=== PATIENT | female | born 1945 | race Caucasian/White ===

== ENCOUNTER 2017-11-20 01:04 | Observation (INO) | payer MEDICARE, OTHER ==
[~2017-11-20] VITALS: Ht 167.6 cm; Wt 80.0 kg
[2017-11-20] VITALS (11 sets, daily range): BP systolic 94–193; BP diastolic 50–99; PULSE 57–118; RESP 16–17; TEMP 97.9–98.2; O2SAT 94–98
[2017-11-20] MEDS ORDERED: LIOT5TAB3 (01:39)
[2017-11-20] MEDS ORDERED: RANI150T PO (01:39)
[2017-11-20] MEDS ORDERED: PROGESTERONE TOPICAL (01:39)
[2017-11-20] MEDS ORDERED: DILT120T PO ×2 (01:39→14:47)
[2017-11-20] MEDS ORDERED: SODI1SOL12 PO (01:39)
[2017-11-20] MEDS ORDERED: METO1TAB9 PO ×2 (01:39→14:47)
[2017-11-20] MEDS ORDERED: LEVO75TA3 PO (01:39)
[2017-11-20] MEDS ORDERED: CLOB0.055 TOPICAL (01:39)
[2017-11-20] MEDS ORDERED: VIVE0.05 T-DERMAL (01:39)
[2017-11-20] MEDS ORDERED: fish oil PO (01:39)
[2017-11-20] MEDS ORDERED: LORA0.5T PO ×2 (01:39→14:47)
[2017-11-20] MEDS ORDERED: ESTRIOL PR (01:39)
[2017-11-20] MEDS ORDERED: FLUT1SPR5 EACH NARE (01:39)
[2017-11-20] MEDS ORDERED: TESTOSTERONE PR (01:39)
[2017-11-20] MEDS ORDERED: ASPIRIN 81 MG CHEW TAB CHEW ONE (01:45)
[2017-11-20] MEDS ORDERED: NITROGLYCERIN 2% OINT 1 GM PACKET TOPICAL ONE (01:45)
[2017-11-20 01:53] LABS: AUTOMATED NEUTROPHIL # 6.4 TH/MM3 (1.8-7.7); BASOPHIL # 0.1 TH/MM3 (0-0.2); BASOPHIL % 1.4 % (0.0-2.0); EOSINOPHIL # 0.6 TH/MM3 (0-0.4); EOSINOPHIL % 5.9 % (0.0-4.0); HEMATOCRIT 44.2 % (35.0-46.0); HEMOGLOBIN 15.6 GM/DL (11.6-15.3); LYMPH % 17.8 % (9.0-44.0); LYMPHOCYTE # 1.7 TH/MM3 (1.0-4.8); MEAN CELL VOLUME 95.1 FL (80.0-100.0); MEAN CORPUSCULAR HEMOGLOBIN 33.5 PG (27.0-34.0); MEAN CORPUSCULAR HGB CONC 35.2 % (32.0-36.0); MEAN PLATELET VOLUME 7.5 FL (7.0-11.0); MONO % 8.2 % (0.0-8.0); MONOCYTE # 0.8 TH/MM3 (0-0.9); NEUT % 66.7 % (16.0-70.0); PLATELET COUNT 294 TH/MM3 (150-450); RED BLOOD COUNT 4.65 MIL/MM3 (4.00-5.30); RED CELL DISTRIBUTION WIDTH 13.2 % (11.6-17.2); WHITE BLOOD COUNT 9.6 TH/MM3 (4.0-11.0)
[2017-11-20] MEDS ORDERED: METOPROLOL TARTRATE 5 MG/5 ML VIAL IV ONE (02:00)
--- NOTE | 2017-11-20 02:03 | RADRPT ---
EXAM DATE/TIME: 11/20/2017 01:50 [place] COMPARISON: No previous studies available for comparison. INDICATIONS : Chest pain. Palpitations. MEDICAL HISTORY : None. SURGICAL HISTORY : None. ENCOUNTER: Initial ACUITY: 1 day PAIN SCORE: 110 LOCATION: Bilateral chest FINDINGS: Cardiomegaly and aortic calcification. No consolidation or effusion. There is linear scarring at the left lung base. Hyperinflation and attenuated upper lung markings noted. CONCLUSION: Hyperinflation and attenuated lung markings. Left basilar linear scarring. Atherosclerosis. Yoandy Wiggins MD on November 20, 2017 at 2:01 Board Certified Radiologist. This report was verified electronically.
[2017-11-20] MEDS ORDERED: DILTIAZEM HCL 25 MG/5 ML VIAL IV ONE (02:30)
[2017-11-20 02:37] LABS: BICARBONATE 28.6 MEQ/L (21.0-32.0); BLOOD UREA NITROGEN 11 MG/DL (7-18); CALCIUM 8.9 MG/DL (8.5-10.1); CHLORIDE 99 MEQ/L (98-107); CREATININE 0.89 MG/DL (0.50-1.00); GLOMERULAR FILTRATION RATE 63 ML/MIN (>89); GLUCOSE,RANDOM 127 MG/DL (74-106); SODIUM (NA) 134 MEQ/L (136-145); TROPONIN I LESS THAN 0.02 NG/ML (0.02-0.05)
[2017-11-20] MEDS ORDERED: SODIUM CHLORIDE 0.9% FLUSH 10 ML FLUSH IV FLUSH PRN (04:00)
[2017-11-20] MEDS ORDERED: NALOXONE HCL 0.4 MG/ML AMP IV PUSH PRN (04:00)
--- NOTE | 2017-11-20 04:21 | PD ---
HPI Chief Complaint: Chest Pain Time Seen by Provider: 01:43 Travel History International Travel<30 days: No Contact w/Intl Traveler<30days: No Traveled to known affect area: No History of Present Illness HPI pt is a 72 yr old female with HTN on metoprolol and diltiazem and she started having palpitation feeling in her chest at 6 pm 6 hrs prior to arrival . pt continues with the same feelin g in ER , Pt arrives to ER with HTN and tachycardia 114-116 irregular, pt no CP no SOB no Diarrhea no stimulants . pt has been walking very little due to plantar fasciitis and today she did more walking than more . pt is ER EKG is afib at rate 114 PFSH Past Medical History Diminished Hearing: No GERD: Yes Hypertension: Yes Thyroid Disease: Yes (hypo) Tetanus Vaccination: Unknown Influenza Vaccination: Yes ?: Not Past Surgical History Appendectomy: Yes Eye Surgery: Yes (catract b/l eyes) Hysterectomy: Yes Social History Alcohol Use: Yes (glass of wine nightly) Tobacco Use: No Substance Use: No Allergies-Medications (Allergen,Severity, Reaction): Coded Allergies: amoxicillin (Verified Allergy, Severe, 11/20/17) abd cramps chlorhexidine (Verified Allergy, Severe, 11/20/17) rash clavulanic acid (Verified Allergy, Severe, 11/20/17) abd cramps pantoprazole (Verified Allergy, Severe, 11/20/17) nausea Reported Meds & Prescriptions Reported Meds & Active Scripts Active Aspirin EC (Aspirin) 325 Mg Tabdr 325 Mg PO DAILY Lorazepam 0.5 Mg Tab 0.5 Mg PO Q8H PRN Diltiazem (Diltiazem HCl) 120 Mg Tab 120 Mg PO DAILY Metoprolol Succinate ER 24 HR (Metoprolol Succinate) 50 Mg Tab 50 Mg PO DAILY Reported Liothyronine (Liothyronine Sodium) 5 Mcg Tab 5 Mcg BID [estriol/testosterone] 6 Mg VA 2XWEEK [progesterone creame] 0.2 Ml TOPICAL BID [fish oil] 1,100 Mg PO DAILY Flonase Nasal [place] (Fluticasone Nasal [place]) 50 Mcg/Act [place] 50 Mcg EACH NARE BID Prevident Rinse (Sodium Fluoride (Dental)) 0.2 % Darshana 5,000 PO EVERY OTHER DAY Ranitidine (Ranitidine HCl) 150 Mg Tab 150 Mg PO BID Clobetasol Topical (Clobetasol Propionate) 0.05% Cream 1 Applic TOPICAL BID Levothyroxine (Levothyroxine Sodium) 75 Mcg Tab 37.5 Mcg PO DAILY Vivelle-Dot Patch 84 HR (Estradiol) 0.05 Mg/24 Hr Patch 1 Patch T-DERMAL 2XWEEK Remove old patch and discard when new patch being placed. Change same days each week. Review of Systems Except as stated in HPI: all other systems reviewed are Neg General / Constitutional: No: Fever Eyes: No: Diploplia HENT: No: Headaches Cardiovascular: Positive: Palpitations, Irregular Rhythm, No: Chest Pain or Discomfort Respiratory: No: Cough Gastrointestinal: No: Nausea, Vomiting Physical Exam Narrative GENERAL: non toxic appearing and no vomit no CP no diaphoresis. SKIN: Warm and dry. HEAD: Atraumatic. Normocephalic. EYES: Pupils equal and round. No scleral icterus. No injection or drainage. ENT: No nasal bleeding or discharge. Mucous membranes pink and moist. NECK: Trachea midline. No JVD. CARDIOVASCULAR: Irregularly irregualr rhythm. and tachycardia RESPIRATORY: No accessory muscle use. Clear to auscultation. Breath sounds equal bilaterally. GASTROINTESTINAL: Abdomen soft, non-tender, nondistended. Hepatic and splenic margins not palpable. MUSCULOSKELETAL: Extremities without clubbing, cyanosis, or edema. No obvious deformities. NEUROLOGICAL: Awake and alert. No obvious cranial nerve deficits. Motor grossly within normal limits. Five out of 5 muscle strength in the arms and legs. Normal speech. PSYCHIATRIC: Appropriate mood and affect; insight and judgment normal. Data Data Last Documented VS Vital Signs Date Time Temp Pulse Resp B/P (MAP) Pulse Ox O2 Delivery O2 Flow Rate FiO2 11/20/17 03:31 66 17 96 Room Air 11/20/17 03:25 138/76 (96) 11/20/17 01:05 97.9 Orders Orders Electrocardiogram (11/20/17:29) Complete Blood Count With Diff (11/20/17:) Basic Metabolic Panel (Bmp) (11/20/17:) Ckmb (Isoenzyme) Profile (11/20/17:) Troponin I (11/20/17:) Chest, Single Ap (11/20/17:29) Iv Access Insert/Monitor (2/15/18 01:29) Ecg Monitoring (11/20/17 01:29) Oxygen Administration (11/20/17 01:29) Oximetry (11/20/17 01:29) Aspirin Chew (Aspirin Chew) (11/20/17 01:45) Nitroglycerin 2% Oint (Nitroglycerin 2% (11/20/17 01:45) Metoprolol Tartrate Inj (Lopressor Inj) (11/20/17 02:00) Diltiazem Inj (Cardizem Inj) (11/20/17 02:30) Admit Order (Ed Use Only) (11/20/17 03:55) Labs Laboratory Tests Test 11/20/17 01:35 White Blood Count 9.6 TH/MM3 Red Blood Count 4.65 MIL/MM3 Hemoglobin 15.6 GM/DL Hematocrit 44.2 % Mean Corpuscular Volume 95.1 FL Mean Corpuscular Hemoglobin 33.5 PG Mean Corpuscular Hemoglobin Concent 35.2 % Red Cell Distribution Width 13.2 % Platelet Count 294 TH/MM3 Mean Platelet Volume 7.5 FL Neutrophils (%) (Auto) 66.7 % Lymphocytes (%) (Auto) 17.8 % Monocytes (%) (Auto) 8.2 % Eosinophils (%) (Auto) 5.9 % Basophils (%) (Auto) 1.4 % Neutrophils # (Auto) 6.4 TH/MM3 Lymphocytes # (Auto) 1.7 TH/MM3 Monocytes # (Auto) 0.8 TH/MM3 Eosinophils # (Auto) 0.6 TH/MM3 Basophils # (Auto) 0.1 TH/MM3 CBC Comment DIFF FINAL Differential Comment Blood Urea Nitrogen 11 MG/DL Creatinine 0.89 MG/DL Random Glucose 127 MG/DL Calcium Level 8.9 MG/DL Sodium Level 134 MEQ/L Potassium Level 4.2 MEQ/L Chloride Level 99 MEQ/L Carbon Dioxide Level 28.6 MEQ/L Anion Gap 6 MEQ/L Estimat Glomerular Filtration Rate 63 ML/MIN Total Creatine Kinase 88 U/L Troponin I LESS THAN 0.02 NG/ML [facility] Medical Decision Making Medical Screen Exam Complete: Yes Emergency Medical Condition: Yes Interpretation(s) first EKG afib rate 114 , then after cardizem 20 mg IVP and Lopressor 2.5 mg IVP the EKG 54 afib slowed response . . pt eventually went back into SINUS rhythm Differential Diagnosis pt has irregualr heart rate and PVCa vs afib vs SVT vs aflutter . vs toxin induced arrhythmia Narrative Course afib new onset and I give lopressor and Diltiazem IVP and observe and eventually pt goes back into sinus rhythm . pt feels much better and is admitteed to the tele service Critical Care Narrative cardiac critical care was 30 minutes to medically slow her heart to allow to return to sinus and avoid need for cardiac conversion in ER. monitoring heart rhythm and medical management of new cardiac arrhythmia Diagnosis Primary Impression: New onset atrial fibrillation Admitting Information Admitting Physician Requests: Admit Scripts Aspirin DR (Aspirin EC) 325 Mg Tabdr 325 MG PO DAILY for Blood Clot Prevention, #30 TAB Prov: Lalit Munson DO 11/20/17 Lorazepam (Lorazepam) 0.5 Mg Tab 0.5 MG PO Q8H Y for ANXIETY, #60 TAB 0 Refills Prov: Lalit Munson DO 11/20/17 Diltiazem (Diltiazem) 120 Mg Tab 120 MG PO DAILY for Angina, #120 TAB 0 Refills Prov: Lalit Munson DO 11/20/17 Metoprolol Succinate ER 24 HR (Metoprolol Succinate ER 24 HR) 50 Mg Tab 50 MG PO DAILY for Blood Pressure Management, #30 TAB 0 Refills Prov: Lalit Munson DO 11/20/17 Benedicto Villela MD Nov 20, 2017 04:21
[2017-11-20] MEDS ORDERED: LORazepam 2 MG/ML VIAL IV PUSH ONE (04:45)
--- NOTE | 2017-11-20 05:27 | HHI.HP ---
[facility] Non-Staff Admission Diagnosis atrial fib new onset and resolved Diagnoses: Travel History International Travel<30 Days: No Contact w/Intl Traveler <30 Da: No Traveled to Known Affected Are: No History of Present Illness had palpitations yesterday around 6pm while drinking wine with would not stop and thus came to hospital by private car did not check pulse at home but here 115 no chest pain no dizziness or syncope many years ago, about 18yrs ago, had palpitations, was given metoprlolol but nothing more than that , not sure if afib not on blood thinners at home just before coming to er today, had little bit of diarrhea Review of Systems Except as stated in HPI: all other systems reviewed are Neg Past Family Social History Past Medical History htn had hepatitis when she was a kid, not sure which kind hypothyroidism Past Surgical History appendectomy cataract sx both eyes hysterectomy Allergies: Coded Allergies: amoxicillin (Verified Allergy, Severe, 11/20/17) abd cramps chlorhexidine (Verified Allergy, Severe, 11/20/17) rash clavulanic acid (Verified Allergy, Severe, 11/20/17) abd cramps pantoprazole (Verified Allergy, Severe, 11/20/17) nausea Family History brother- colon cancer mother- lung cancer dad- oat cell cancer lung Social History quit smoking 20yrs ago drink wine in evenings - about 1-2 glasses no drugs still living on vacation here- came down 3 months ago from [place] Physical Exam Vital Signs Vital Signs Date Time Temp Pulse Resp B/P (MAP) Pulse Ox O2 Delivery O2 Flow Rate FiO2 11/20/17 04:15 74 16 116/70 (85) 96 Room Air 11/20/17 03:31 66 17 96 Room Air 11/20/17 03:25 65 17 138/76 (96) 96 11/20/17 02:28 63 17 151/73 (99) 97 Room Air 11/20/17 02:07 17 97 Room Air 11/20/17 02:07 104 17 176/92 (120) 97 Room Air 2/15/18 02:06 96 Room Air 11/20/17 01:40 115 17 193/99 (130) 98 Room Air 11/20/17 01:05 97.9 118 16 177/97 (123) 97 Room Air Physical Exam GENERAL: This is a well-nourished, well-developed patient, in no apparent distress. SKIN: No rashes, ecchymoses or lesions. Cool and dry. HEAD: Atraumatic. Normocephalic. No temporal or scalp tenderness. EYES:No scleral icterus. No injection or drainage. ENT: Nose without bleeding, purulent drainage or septal hematoma.Airway patent. NECK: Trachea midline. No JVD Supple, nontender, no meningeal signs. CARDIOVASCULAR: Regular rate and rhythm without murmurs, gallops, or rubs. RESPIRATORY: Clear to auscultation. Breath sounds equal bilaterally. No wheezes , rales, or rhonchi. GASTROINTESTINAL: Abdomen soft, non-tender, nondistended. . No guarding. MUSCULOSKELETAL: Extremities without clubbing, cyanosis, or edema. No calf tenderness. NEUROLOGICAL: Awake and alert. Motor and sensory grossly within normal limits Normal speech. Laboratory Laboratory Tests Test 11/20/17 01:35 White Blood Count 9.6 Red Blood Count 4.65 Hemoglobin 15.6 Hematocrit 44.2 Mean Corpuscular Volume 95.1 Mean Corpuscular Hemoglobin 33.5 Mean Corpuscular Hemoglobin Concent 35.2 Red Cell Distribution Width 13.2 Platelet Count 294 Mean Platelet Volume 7.5 Neutrophils (%) (Auto) 66.7 Lymphocytes (%) (Auto) 17.8 Monocytes (%) (Auto) 8.2 Eosinophils (%) (Auto) 5.9 Basophils (%) (Auto) 1.4 Neutrophils # (Auto) 6.4 Lymphocytes # (Auto) 1.7 Monocytes # (Auto) 0.8 Eosinophils # (Auto) 0.6 Basophils # (Auto) 0.1 CBC Comment DIFF FINAL Differential Comment Blood Urea Nitrogen 11 Creatinine 0.89 Random Glucose 127 Calcium Level 8.9 Sodium Level 134 Potassium Level 4.2 Chloride Level 99 Carbon Dioxide Level 28.6 Anion Gap 6 Estimat Glomerular Filtration Rate 63 Total Creatine Kinase 88 Troponin I LESS THAN 0.02 Result Diagram: 11/20/1713411/20/17134 Imaging Last 48 hours Impressions Chest X-Ray 11/20/17 0129 Signed Impressions: Service Date/Time: November 01:50 - CONCLUSION: Hyperinflation and attenuated lung markings. Left basilar linear scarring. Atherosclerosis. MD Judy Felix VTE Risk Assessment Judy VTE Risk Assessment: Mod/High Risk (score >= 2) Caprini Risk Assessment Model Point Value = 1 Point Value = 2 Point Value = 3 Point Value = 5 Age 41-60 Minor surgery BMI > 25 kg/m2 Swollen legs Varicose veins or History of unexplained or recurrent spontaneous Oral contraceptives or hormone replacement Sepsis (< 1 month) Serious lung disease, including pneumonia (< 1 month) Abnormal pulmonary function Acute myocardial infarction Congestive heart failure (< 1 month) History of inflammatory bowel disease Medical patient at bed rest Age 61-74 Arthroscopic surgery Major open surgery (> 45 min) Laparoscopic surgery (> 45 min) Malignancy Confined to bed (> 72 hours) Immobilizing plaster cast Central venous access Age >= 75 History of VTE Family history of VTE Factor V Leiden Prothrombin [id number] Lupus anticoagulant Anticardiolipin antibodies Elevated serum homocysteine Heparin-induced thrombocytopenia Other congenital or acquired thrombophilia Stroke (< 1 month) Elective arthroplasty Hip, pelvis, or leg fracture Acute spinal cord injury (< 1 month) Prophylaxis Regimen Total Risk Factor Score Risk Level Prophylaxis Regimen 0-1 Low Early ambulation 2 Moderate Order ONE of the following: *Sequential Compression Device (SCD) *Heparin 5000 units SQ BID 3-4 Higher Order ONE of the following medications: *Heparin 5000 units SQ TID *Enoxaparin/Lovenox 40 mg SQ daily (WT < 150 kg, CrCl > 30 mL/min) *Enoxaparin/Lovenox 30 mg SQ daily (WT < 150 kg, CrCl > 10-29 mL/min) *Enoxaparin/Lovenox 30 mg SQ BID (WT < 150 kg, CrCl > 30 mL/min) AND/OR *Sequential Compression Device (SCD) 5 or more Highest Order ONE of the following medications: *Heparin 5000 units SQ TID (Preferred with Epidurals) *Enoxaparin/Lovenox 40 mg SQ daily (WT < 150 kg, CrCl > 30 mL/min) *Enoxaparin/Lovenox 30 mg SQ daily (WT < 150 kg, CrCl > 10-29 mL/min) *Enoxaparin/Lovenox 30 mg SQ BID (WT < 150 kg, CrCl > 30 mL/min) AND *Sequential Compression Device (SCD) Assessment and Plan Assessment and Plan Impression: New-onset A. fib. htn had hepatitis when she was a kid, not sure which kind hypothyroidism Plan: Serial cardiac enzymes and EKGs. Telemetry monitoring. Echocardiogram in a.m. For now, continue aspirin since patient's chads score is 1. Based on echo findings, may consider further anticoagulation. Cardiology consult. Check TSH. Resume home meds. DVT prophylaxis is Lovenox. Discussed Condition With patient, ER MD Anthony,Rachael RICHARDS Nov 20, 2017 05:27
[2017-11-20] MEDS ORDERED: LORazepam 0.5 MG TAB PO PRN (06:15)
[2017-11-20] MEDS ORDERED: PILL SPLITTER OTHER PRN (06:45)
[2017-11-20] MEDS ORDERED: ENOXAPARIN SODIUM 40 MG/0.4 ML SYRINGE SQ SCH (09:00)
[2017-11-20] MEDS ORDERED: FLUTICASONE PROPIONATE 50 MCG/ACT 16 GM NASAL SPRAY EACH NARE SCH (09:00)
[2017-11-20] MEDS ORDERED: LEVOTHYROXINE SODIUM 75 MCG TAB PO SCH (09:00)
[2017-11-20] MEDS ORDERED: METOPROLOL SUCCINATE 50 MG EXTENDED RELEASE TAB PO SCH (09:00)
[2017-11-20] MEDS ORDERED: DILTIAZEM-CD 120 MG CAP ER PO SCH (09:00)
[2017-11-20] MEDS ORDERED: FAMOTIDINE 20 MG TAB PO SCH (09:00)
[2017-11-20] MEDS ORDERED: LIOTHYRONINE SODIUM 5 MCG TAB PO SCH (09:00)
[2017-11-20] MEDS ORDERED: SODIUM CHLORIDE 0.9% FLUSH 10 ML FLUSH IV FLUSH SCH (09:00)
[2017-11-20 09:42] LABS: HEPATITIS A AB IGM NEGATIVE (NEGATIVE); HEPATITIS B CORE AB IGM NEGATIVE (NEGATIVE); HEPATITIS B SURFACE ANTIGEN NEGATIVE (NEGATIVE); HEPATITIS C AB IgG NEGATIVE (NEGATIVE)
[2017-11-20 14:04] LABS: TROPONIN I LESS THAN 0.02 NG/ML (0.02-0.05)
--- NOTE | 2017-11-20 14:25 | HHI.PR ---
Subjective Remarks had palpitations yesterday around 6pm while drinking wine with would not stop and thus came to hospital by private car did not check pulse at home but here 115 no chest pain no dizziness or syncope many years ago, about 18yrs ago, had palpitations, was given metoprlolol but nothing more than that , not sure if afib not on blood thinners at home just before coming to er today, had little bit of diarrhea 2-15 MEDICATIONS ADJUSTED BY MYSELF AND CARDIOLOGY CAN BE DCED TO HOME TODAY FOLLOW UP WITH DR ENGLE IN 1 WEEK RX WRITTEN CARDIZEM AND METOPROLOL DC HOME Objective Vitals Vital Signs Date Time Temp Pulse Resp B/P (MAP) Pulse Ox O2 Delivery O2 Flow Rate FiO2 11/20/17 12:26 57 11/20/17 12:00 98.2 62 16 94/50 (65) 94 11/20/17 09:00 64 11/20/17 08:00 97.9 60 16 125/66 (85) 95 11/20/17 08:00 67 11/20/17 07:02 11/20/17 06:00 62 16 113/64 (80) 96 Room Air 11/20/17 04:15 74 16 116/70 (85) 96 Room Air 11/20/17 03:31 66 17 96 Room Air 11/20/17 03:25 65 17 138/76 (96) 96 11/20/17 02:28 63 17 151/73 (99) 97 Room Air 11/20/17 02:07 17 97 Room Air 11/20/17 02:07 104 17 176/92 (120) 97 Room Air 11/20/17 02:06 96 Room Air 11/20/17 01:40 115 17 193/99 (130) 98 Room Air 11/20/17 01:05 97.9 118 16 177/97 (123) 97 Room Air Result Diagram: 11/20/17 0135 11/20/17 0135 Other Results Laboratory Tests Test 11/20/17 01:35 11/20/17 06:20 11/20/17 13:07 White Blood Count 9.6 TH/MM3 Red Blood Count 4.65 MIL/MM3 Hemoglobin 15.6 GM/DL Hematocrit 44.2 % Mean Corpuscular Volume 95.1 FL Mean Corpuscular Hemoglobin 33.5 PG Mean Corpuscular Hemoglobin Concent 35.2 % Red Cell Distribution Width 13.2 % Platelet Count 294 TH/MM3 Mean Platelet Volume 7.5 FL Neutrophils (%) (Auto) 66.7 % Lymphocytes (%) (Auto) 17.8 % Monocytes (%) (Auto) 8.2 % Eosinophils (%) (Auto) 5.9 % Basophils (%) (Auto) 1.4 % Neutrophils # (Auto) 6.4 TH/MM3 Lymphocytes # (Auto) 1.7 TH/MM3 Monocytes # (Auto) 0.8 TH/MM3 Eosinophils # (Auto) 0.6 TH/MM3 Basophils # (Auto) 0.1 TH/MM3 CBC Comment DIFF FINAL Differential Comment Blood Urea Nitrogen 11 MG/DL Creatinine 0.89 MG/DL Random Glucose 127 MG/DL Calcium Level 8.9 MG/DL Sodium Level 134 MEQ/L Potassium Level 4.2 MEQ/L Chloride Level 99 MEQ/L Carbon Dioxide Level 28.6 MEQ/L Anion Gap 6 MEQ/L Estimat Glomerular Filtration Rate 63 ML/MIN Total Creatine Kinase 88 U/L 41 U/L Troponin I LESS THAN 0.02 NG/ML LESS THAN 0.02 NG/ML Thyroid Stimulating Hormone 3rd Gen 2.860 uIU/ML Hepatitis A IgM Antibody NEGATIVE Hepatitis B Surface Antigen NEGATIVE Hepatitis B Core IgM Antibody NEGATIVE Hepatitis C Antibody NEGATIVE Imaging Last Impressions Chest X-Ray 11/20/17 0129 Signed Impressions: Service Date/Time: November 01:50 - CONCLUSION: Hyperinflation and attenuated lung markings. Left basilar linear scarring. Atherosclerosis. Yoandy Wiggins MD Objective Remarks GENERAL: Wake alert oriented talkative and cooperative appears stated age SKIN: Warm and dry. HEAD: Atraumatic. Normocephalic. EYES: Pupils equal and round. No scleral icterus. No injection or drainage. Extraocular muscles intact ENT: No nasal bleeding or discharge. Mucous membranes pink and moist. Tongue is midline NECK: Trachea midline. No JVD. Supple CARDIOVASCULAR: Regular rate and rhythm. S1 and S2 no S3 or S4 RESPIRATORY: No accessory muscle use. Clear to auscultation. Breath sounds equal bilaterally. GASTROINTESTINAL: Abdomen soft, non-tender, nondistended. Hepatic and splenic margins not palpable. MUSCULOSKELETAL: Extremities without clubbing, cyanosis, or edema. No obvious deformities. NEUROLOGICAL: Awake and alert. No obvious cranial nerve deficits. Motor grossly within normal limits. Five out of 5 muscle strength in the arms and legs. Normal speech. PSYCHIATRIC: Appropriate mood and affect; insight and judgment normal. Medications and IVs Current Medications Aspirin (Aspirin Chew) 324 mg ONCE ONCE CHEW Last administered on 11/20/17at 01 :58; Start 11/20/17 at 01:45; Stop 11/20/17 at 01:46; Status DC Nitroglycerin (Nitroglycerin 2% Oint) 1 inch ONCE ONCE TOPICAL Last administered on 11/20/17at 01:58; Start 11/20/17 at 01:45; Stop 11/20/17 at 01:46 ; Status DC Metoprolol Tartrate (Lopressor Inj) 2.5 mg ONCE ONCE IV Last administered on at 02:01; Start 11/20/17 at 02:00; Stop 11/20/17 at 02:01; Status DC Diltiazem HCl (Cardizem Inj) 20 mg ONCE ONCE IV Last administered on at 02:25; Start 11/20/17 at 02:30; Stop 11/20/17 at 02:31; Status DC Sodium Chloride (NS Flush) 2 ml UNSCH PRN IV FLUSH FLUSH AFTER USING IV ACCESS ; Start 11/20/17 at 04:00 Sodium Chloride (NS Flush) 2 ml BID IV FLUSH Last administered on 11/20/17at 09: 00; Start 11/20/17 at 09:00 Naloxone HCl (Narcan Inj) 0.4 mg UNSCH PRN IV PUSH SEE LABEL COMMENTS; Start at 04:00 Aspirin (Ecotrin Ec) 325 mg DAILY PO ; Start 11/21/17 at 09:00 Lorazepam (Ativan Inj) 0.5 mg ONCE ONCE IV PUSH Last administered on at 04:47; Start 11/20/17 at 04:45; Stop 11/20/17 at 04:46; Status DC Levothyroxine Sodium (Synthroid) 37.5 mcg DAILY@0600 PO ; Start 11/20/17 at 09: 00 Liothyronine Sodium (Cytomel) 5 mcg BID PO ; Start 11/20/17 at 09:00 Lorazepam (Ativan) 0.5 mg Q8H PRN PO ANXIETY; Start 11/20/17 at 06:15 Metoprolol Succinate (Toprol Xl) 50 mg DAILY PO Last administered on 11/20/17at 09:07; Start 11/20/17 at 09:00 Diltiazem HCl (Cardizem Cd) 120 mg DAILY PO Last administered on 11/20/17at 09: 07; Start 11/20/17 at 09:00 Fluticasone Propionate (Flonase Hieu Spr) 1 spray BID EACH NARE ; Start 11/20/17 at 09:00 Famotidine (Pepcid) 20 mg BID PO Last administered on 11/20/17at 09:07; Start at 09:00 Enoxaparin Sodium (Lovenox Inj) 40 mg Q24H SQ Last administered on 11/20/17at 09 :07; Start 11/20/17 at 09:00 Miscellaneous (Pill Splitter) 1 ea UNSCH PRN OTHER SEE LABEL COMMENTS; Start at 06:45 A/P Assessment and Plan Impression: New-onset A. fib. htn had hepatitis when she was a kid, not sure which kind hypothyroidism Plan: Serial cardiac enzymes and EKGs. Telemetry monitoring. Echocardiogram in a.m. For now, continue aspirin since patient's chads score is 1. Based on echo findings, may consider further anticoagulation. Cardiology consult. Check TSH. Resume home meds. Discussed with Dr. engle he states that she can be discharged home on aspirin 325 mg Continue on Cardizem 120 mg extended release daily Continue on metoprolol decreased to 25 mg 1 by mouth daily Can be discharged home to follow-up with Dr. engle one week Discharge Planning DC to home today Lalit Munson DO Nov 20, 2017 14:24
--- NOTE | 2017-11-20 14:37 | EKG ---
Date Performed: 11/20/2017 Time Performed: 01:30:56 PTAGE: 72 years EKG: ATRIAL FIBRILLATION WITH RAPID VENTRICULAR RESPONSE MINIMAL ST DEPRESSION ABNORMAL RHYTHM E CG NO PREVIOUS TRACING DOCTOR: Miguel Montero Interpretating Date/Time 11/20/2017 14:31:05
--- NOTE | 2017-11-20 14:40 | EKG ---
Date Performed: 11/20/2017 Time Performed: 02:39:01 PTAGE: 72 years EKG: ATRIAL FIBRILLATION WITH SLOW VENTRICULAR RESPONSE ABNORMAL RHYTHM ECG NO PREVIOUS TRACING Rate has slowed since prior tracing. DOCTOR: Miguel Montero Interpretating Date/Time 11/20/2017 14:34:11
--- NOTE | 2017-11-20 14:41 | EKG ---
Date Performed: 11/20/2017 Time Performed: 10:16:18 PTAGE: 72 years EKG: Sinus rhythm with 1st degree A-V block. Abnormal ECG PREVIOUS TRACING 11/20/17 Atrial fibrillation has been replaced with sinus rhythm with first de gree block. DOCTOR: Miguel Montero Interpretating Date/Time 11/20/2017 14:35:05
[2017-11-20] MEDS ORDERED: ASPI325T33 PO (14:47)
--- NOTE | 2017-11-20 14:50 | HHI.DS ---
Discharge Summary Admission Date Nov 20, 2017 at 04:00 Discharge Date: Nov 20, 2017 Admitting Diagnosis atrial fib new onset and resolved (1) New onset atrial fibrillation ICD Code: I48.91 - Unspecified atrial fibrillation Diagnosis: Principal Status: Acute Procedures none Brief History - From Admission had palpitations yesterday around 6pm while drinking wine with would not stop and thus came to hospital by private car did not check pulse at home but here 115 no chest pain no dizziness or syncope many years ago, about 18yrs ago, had palpitations, was given metoprlolol but nothing more than that , not sure if afib not on blood thinners at home just before coming to er today, had little bit of diarrhea CBC/BMP: 11/20/17 0135 11/20/17 0135 Significant Findings Laboratory Tests Test 11/20/17 01:35 11/20/17 06:20 11/20/17 13:07 Hemoglobin 15.6 GM/DL (11.6-15.3) Monocytes (%) (Auto) 8.2 % (0.0-8.0) Eosinophils (%) (Auto) 5.9 % (0.0-4.0) Eosinophils # (Auto) 0.6 TH/MM3 (0-0.4) Random Glucose 127 MG/DL (74-106) Sodium Level 134 MEQ/L (136-145) Estimat Glomerular Filtration Rate 63 ML/MIN (>89) Troponin I LESS THAN 0.02 NG/ML LESS THAN 0.02 NG/ML Imaging Last Impressions Chest X-Ray 11/20/17 0129 Signed Impressions: Service Date/Time: November 01:50 - CONCLUSION: Hyperinflation and attenuated lung markings. Left basilar linear scarring. Atherosclerosis. Yoandy Wiggins MD PE at Discharge GENERAL: Wake alert oriented talkative and cooperative appears stated age SKIN: Warm and dry. HEAD: Atraumatic. Normocephalic. EYES: Pupils equal and round. No scleral icterus. No injection or drainage. Extraocular muscles intact ENT: No nasal bleeding or discharge. Mucous membranes pink and moist. Tongue is midline NECK: Trachea midline. No JVD. Supple CARDIOVASCULAR: Regular rate and rhythm. S1 and S2 no S3 or S4 RESPIRATORY: No accessory muscle use. Clear to auscultation. Breath sounds equal bilaterally. GASTROINTESTINAL: Abdomen soft, non-tender, nondistended. Hepatic and splenic margins not palpable. MUSCULOSKELETAL: Extremities without clubbing, cyanosis, or edema. No obvious deformities. NEUROLOGICAL: Awake and alert. No obvious cranial nerve deficits. Motor grossly within normal limits. Five out of 5 muscle strength in the arms and legs. Normal speech. PSYCHIATRIC: Appropriate mood and affect; insight and judgment normal. Hospital Course had palpitations yesterday around 6pm while drinking wine with would not stop and thus came to hospital by private car did not check pulse at home but here 115 no chest pain no dizziness or syncope many years ago, about 18yrs ago, had palpitations, was given metoprlolol but nothing more than that , not sure if afib not on blood thinners at home just before coming to er today, had little bit of diarrhea 2-15 MEDICATIONS ADJUSTED BY MYSELF AND CARDIOLOGY CAN BE DCED TO HOME TODAY FOLLOW UP WITH DR EVERETT IN 1 WEEK RX WRITTEN CARDIZEM AND METOPROLOL DC HOME New-onset A. fib. htn had hepatitis when she was a kid, not sure which kind hypothyroidism Plan: Serial cardiac enzymes and EKGs. Telemetry monitoring. Echocardiogram in a.m. For now, continue aspirin since patient's chads score is 1. Based on echo findings, may consider further anticoagulation. Cardiology consult. Check TSH. Resume home meds. Discussed with Dr. everett he states that she can be discharged home on aspirin 325 mg Continue on Cardizem 120 mg extended release daily Continue on metoprolol decreased to 50 mg 1 by mouth daily Can be discharged home to follow-up with Dr. everett one week Pt Condition on Discharge: Stable Discharge Disposition: Discharge Home Discharge Time: <= 30 minutes Discharge Instructions DIET: Follow Instructions for: Heart Healthy Diet Speech Therapy-Diet Recommends: Regular Activities you can perform: Regular-No Restrictions Follow up Referrals: Cardiology - 1 Week with León Everett MD New Medications: Aspirin (Aspirin EC) 325 Mg Tabdr 325 MG PO DAILY for Blood Clot Prevention, #30 TAB Continued Medications: Clobetasol Topical (Clobetasol Topical) 0.05% Cream 1 APPLIC TOPICAL BID, #15 GM 0 Refills Diltiazem (Diltiazem) 120 Mg Tab 120 MG PO DAILY for Angina, #120 TAB 0 Refills (This prescription has been renewed) Estradiol-Dot Patch 84 HR (Vivelle-Dot Patch 84 HR) 0.05 Mg/24 Hr Patch 1 PATCH T-DERMAL 2XWEEK for Estrogen Supplements, #8 PATCH 0 Refills Remove old patch and discard when new patch being placed. Change same days each week. Fluticasone Nasal [place] (Flonase Nasal [place]) 50 Mcg/Act [place] 50 MCG EACH NARE BID for Allergies, #1 BOTTLE 0 Refills Levothyroxine (Levothyroxine) 75 Mcg Tab 37.5 MCG PO DAILY for Thyroid, #30 TAB 0 Refills Liothyronine (Liothyronine) 5 Mcg Tab 5 MCG BID for Thyroid Supplement, #30 TAB 0 Refills Lorazepam (Lorazepam) 0.5 Mg Tab 0.5 MG PO Q8H PRN for ANXIETY, #60 TAB 0 Refills (This prescription has been renewed) Metoprolol Succinate ER 24 HR (Metoprolol Succinate ER 24 HR) 50 Mg Tab 50 MG PO DAILY for Blood Pressure Management, #30 TAB 0 Refills (This prescription has been renewed) Ranitidine (Ranitidine) 150 Mg Tab 150 MG PO BID for Heartburn Management, #60 TAB 0 Refills Sodium Fluoride (Dental) ([place] Rinse) 0.2 % Darshana 5000 PO EVERY OTHER DAY [estriol/testosterone] () 6 MG TN 2XWEEK [fish oil] () 1100 MG PO DAILY [progesterone creame] () 0.2 ML TOPICAL BID Lalit Munson DO Nov 20, 2017 14:50
--- NOTE | 2017-11-20 18:27 | MB ---
cc: FAM EVERETT MD DATE OF CONSULTATION 11/20/17 HISTORY OF PRESENT ILLNESS A 72-year-old white female with a history of hypertension who developed palpitations and tachycardia yesterday while she was drinking wine with her . She was found to be in atrial fibrillation with rapid ventricular response. She has had no chest pain, shortness of breath or dizziness. She had an episode of palpitations many years ago. PAST MEDICAL HISTORY 1. Hypertension 2. Hypothyroidism. 3. Diabetes as a child 4. History of appendectomy 5. Cataract surgery, 6. Hysterectomy MEDICATIONS 1. Metoprolol 2. Diltiazem 3. Lorazepam 4. Fluticasone. 5. Ranitidine. 6. patch 7. Levothyroxine 8. Liothyromine 9. Clobetazole. SOCIAL HISTORY The patient does not smoke. She quit smoking 20 years ago. She drinks 1-2 glasses of wine every evening. She is . She lives in [place] and is planning to go home in about a week and a half. FAMILY HISTORY Negative for heart disease. REVIEW OF SYSTEMS Otherwise negative. ALLERGIES AMOXICILLIN PANTOPRAZOLE CARBONIC ACID CHLORHEXIDINE PHYSICAL EXAMINATION VITAL SIGNS: Blood pressure 94/50, pulse 57 and regular. HEENT: Negative. 2+ carotid upstrokes. No bruits. LUNGS: Clear. HEART: Regular with no murmur, gallop or rub. ABDOMEN: Soft. No bruits. EXTREMITIES: Without edema. 2+ distal pulses NEUROLOGIC: Grossly nonfocal. CARDIOLOGY STUDIES EKG was reviewed and showed atrial fibrillation with rapid ventricular response. No acute changes, RSR prime in V1 and V2. LABORATORY DATA Hemoglobin 15.6. Potassium 4.2, creatinine 0.9, troponin less than 0.02, TSH 2.6. DIAGNOSES 1. Paroxysmal atrial fibrillation with rapid ventricular response 2. Hypertension 3. hypothyroidism DISPOSITION Ms. Dhillon has spontaneously converted to sinus rhythm. Her blood pressure is now controlled. She can be discharged home from cardiac standpoint. I will see her back for follow up and echocardiogram shortly after discharge as outpatient. I discussed anticoagulation with the patient and if she decides to be on anticoagulation we will start it at her office visit. MD DARIEL Hammer/ /2:07 PM /6:10 PM
[2017-11-21] MEDS ORDERED: ASPIRIN EC 325 MG TABEC PO SCH (09:00)
--- NOTE | 2017-11-22 01:01 | EKG ---
Date Performed: 11/20/2017 Time Performed: 14:36:40 PTAGE: 72 years EKG: SINUS BRADYCARDIA WITH FIRST DEGREE AV BLOCK ABNORMAL ECG PREVIOUS TRACING : 11/20/2017 10.16 Since the prior tracing, there has been no significant michaels DOCTOR: León Macias Interpretating Date/Time 11/22/2017 01:01:00
== END 2017-11-20 15:06 | disposition home or self-care (01) ==
LOC: NEPE 01:04 → NEDA 04:00 → HCIN 07:16
PROVIDERS: ADMIT Hospitalist; ATTEND Hospitalist
DX: I48.0 Paroxysmal atrial fibrillation (principal); I44.0 Atrioventricular block, first degree; I10 Essential (primary) hypertension; E03.9 Hypothyroidism, unspecified; M72.2 Plantar fascial fibromatosis; K21.9 Gastro-esophageal reflux disease without esophagitis; Z86.39 Personal history of other endocrine, nutritional and metabolic disease; Z86.19 Personal history of other infectious and parasitic diseases; Z79.899 Other long term (current) drug therapy; Z87.891 Personal history of nicotine dependence
CPT/HCPCS: 71045; 80048; 80074; 82550; 84443; 84484; 85025; 93005; 96372; 96374; 96375; 99291; G0378; J1650; J2060